=== PATIENT | female | born 1970 | race Caucasian/White ===

== ENCOUNTER 2018-05-07 21:03 | Emergency (ER) | payer OTHER ==
[~2018-05-07] VITALS: Ht 160 cm; Wt 77.1 kg
[2018-05-07 21:36] VITALS: BP_SYST 143
[2018-05-07 23:36] VITALS: BP_SYST 129
== END 2018-05-07 23:37 | disposition home or self-care (01) ==
LOC: SED 21:03
DX: M54.12 Radiculopathy, cervical region (principal); R03.0 Elevated blood-pressure reading, without diagnosis of hypertension; Z90.710 Acquired absence of both cervix and uterus
CPT/HCPCS: 72040-TC; 99284; 99285

== ENCOUNTER 2022-03-13 23:09 | Emergency (ER) | payer MEDICAID, OTHER ==
[~2022-03-13] VITALS: Ht 160 cm; Wt 86.2 kg
[2022-03-13 23:25] VITALS: BP_SYST 138
--- NOTE | 2022-03-13 23:25 | NUR ---
Patient triaged and placed in waiting room. VSS and patient appears in no acute distress at this time. Accompanied by fam member, awaiting available bed, and MD notified of need for MSE.
--- NOTE | 2022-03-13 23:59 | NUR ---
Patient to ER bed kunz to gown for evaluation. Side rails up. Report given to Rosita GLASER.
[2022-03-14] MEDS ORDERED: SULFAMETHOXAZOLE/TRIMETHOPR DS 1 TABLET PO ONE (01:30)
[2022-03-14] MEDS ORDERED: LORATADINE 10 MG TABLET PO ONE (01:30)
[2022-03-14] MEDS ORDERED: SULF1TAB48 PO (01:31)
--- NOTE | 2022-03-14 01:43 | NUR ---
KENDALL Jordan at bedside examining patient.
--- NOTE | 2022-03-14 01:45 | NUR ---
Patient given written and verbal discharge instructions and verbalizes understanding. ER MD discussed with patient the results and treatment provided. Patient in stable condition. ID arm band removed. Rx of BACTRIM given. Patient educated on pain management and to follow up with PMD. Pain Scale . Opportunity for questions provided and answered. Medication side effect fact sheet provided.
== END 2022-03-14 01:44 | disposition home or self-care (01) ==
LOC: SED 23:09
DX: S60.562A Insect bite (nonvenomous) of left hand, initial encounter (principal); Z79.899 Other long term (current) drug therapy; W57.XXXA Bitten or stung by nonvenomous insect and other nonvenomous arthropods, initial encounter; Y93.89 Activity, other specified; Y92.89 Other specified places as the place of occurrence of the external cause; Y99.8 Other external cause status
CPT/HCPCS: 93005; 99283